=== PATIENT | male | born 2000 | race Caucasian/White ===

== ENCOUNTER 2020-12-01 19:55 | Emergency (ER) | payer SELFPAY ==
--- NOTE | 2020-12-01 19:58 | ECG_ITS ---
[facility] Test Date: 2020-12-01 Pat Name: SOM KING Department: Room: Gender: Male Director Of Automation: : 2000 Requested By: Panfilo Rodríguez Order Number: [id number] [place] MD: Yaritza Burnham M.D. Measurements Intervals [place] Rate: 101 P: 48 [place]: 161 QRS: 64 QRSD: 85 T: 47 QT: 307 QTc: 399 Interpretive Statements SINUS TACHYCARDIA ABNORMAL RHYTHM ECG No previous ECG available for comparison Electronically Signed On 12-03-2020 19:13:33 GRAIN MANAGER by Yaritza Burnham M.D. [id number]
--- NOTE | 2020-12-01 19:58 | XR_ITS ---
WS: [id number] Portable AP upright chest, 12/01/2020 Clinical Data: cp Comparison: None. Findings: No nodules, masses or effusions are seen. The heart is normal. The pulmonary vascularity is not increased. No pneumonia or pneumothorax is seen. XR/XR chest 1V portable 91102 Impression: Negative chest.
[2020-12-01 20:11] VITALS: BP 141/84; PULSE 91; RESP 18; TEMP 37.3; O2SAT 99; BMI 25.0
[2020-12-01 20:49] VITALS: BP 148/89; PULSE 86; RESP 18; O2SAT 99
--- NOTE | 2020-12-01 20:50 | PC.NURSE ---
pt c/o left arm numbness, thought when assessed pt has equal sensation upon both arms and can feel me when pinching both arms. vs retaken, pt is in nad at this time.
--- NOTE | 2020-12-01 21:30 | ECG_ITS ---
[facility] Test Date: 2020-12-01 Pat Name: SOM KING Department: Room: Gender: Male Release And Technical Records Clerk: : 2000 Requested By: Ramos Mackenzie Order Number: [id number] [place] MD: Yaritza Burnham M.D. Measurements Intervals [place] Rate: 92 P: 56 RI: 139 QRS: 86 QRSD: 90 T: 40 QT: 321 QTc: 398 Interpretive Statements SINUS RHYTHM WARNING: DATA QUALITY MAY AFFECT INTERPRETATION No previous ECG available for comparison Electronically Signed On 12-03-2020 19:13:30 SOFTBALL PLAYER by Yaritza Burnham M.D. [id number]
[2020-12-01 21:33] VITALS: BP 163/99; PULSE 99; RESP 16; O2SAT 100
[2020-12-01] MEDS: ketorolac 30 mg/mL INJ IM (22:11)
[2020-12-01] MEDS: lidocaine 2% viscous 15 ML, aluminum-mag hydrox-simethicon 30 ML, sucralfate oral liq 1 GM PO (22:11)
[2020-12-01 22:18] LABS: Basophils % 0.2 %; Hematocrit 40.5 % (42.0-52.0); Hemoglobin 14.2 g/dL (11.7-16.6); Lymphocytes # 1.4 10^3/uL (0.8-4.8); Lymphocytes % 11.1 %; Mean Corpuscular HGB Conc 35.1 g/dL (30.0-36.0); Mean Corpuscular Hemoglobin 29.3 pg (28.0-34.0); Mean Corpuscular Volume 83.7 fL (80-94); Monocytes # 1.4 10^3/uL (0.2-0.9); Monocytes % 11.7 %; Neutrophils # 9.43 10^3/uL (1.8-7.7); Neutrophils % 76.8 %; Nucleated Red Blood Cells % 0 %; Platelet Count 227 10^3/cmm (130-400); Red Blood Count 4.84 10^6/uL (4.1-5.3); Red Cell Distribution Width 11.9 % (12.1-15.1); White Blood Count 12.3 10^3/uL (4.0-10.0)
--- NOTE | 2020-12-01 22:45 | PC.NURSE ---
EKG done at 2245 and shown to ER doctor
[2020-12-01 22:47] LABS: Alanine Aminotransferase 13 U/L (0-41); Albumin Level 4.6 g/dL (3.5-5.2); Alkaline Phosphatase 59 IU/L (40-130); Anion Gap 16.9 (5-19); Aspartate Amino Transferase 16 U/L (0-40); Blood Urea Nitrogen 8 mg/dL (6-20); Calcium 9.2 mg/dL (8.5-10.5); Carbon Dioxide 25 mmol/L (22-29); Chloride 99 mmol/L (98-107); Creatinine Clr Calc Pharmacy 136.2107; Globulin 2.6 g/dL (1.3-4.6); Glomerular Filtration Rate 94.3 mL/min (90-130); Glucose 90 mg/dL (65-115); Osmolality Calculated 282 mOsm/kg (285-295); Potassium 3.9 mmol/L (3.5-5.1); Sodium 137 mmol/L (136-145); Total Bilirubin 0.6 mg/dL (0.15-1.2); Total Protein 7.2 g/dL (6.6-8.7)
[2020-12-01 22:48] LABS: Troponin(5th) Baseline 7 ng/L (0-15)
[2020-12-01 22:52] VITALS: PULSE 106; RESP 16; O2SAT 100
[2020-12-01 22:58] VITALS: PULSE 106; RESP 16; O2SAT 100
--- NOTE | 2020-12-01 23:12 | ED_ITS ---
HPI - Chest Pain General: Chief Complaint: Chest Pain Stated Complaint: DIFF BREATHING W/CP Time Seen by Provider: 12/01/20 21:20 History of Present Illness: HPI narrative: The patient is a 20-year-old male who comes to the ER complaining of midsternal chest pain and pain with deep breaths and movement and palpation of his chest wall. He says he also lifts heavy boxes at work frequently. No previous medical history or medication history. The pain started last night and he called off to work today because it hurt. He took no medications for this MD complaint: chest pain Pain location: substernal Pain radiation: none Quality: sharp Associated symptoms: Reports no associated symptoms; Deny abdominal pain, dyspnea or palpitations Review of Systems General: Reports: 10 or more systems reviewed and unremarkable except in HPI and below Const: Denies: fatigue Eyes: Denies: change in vision, blurry vision or eye redness ENMT: Denies: throat pain, swelling of lips/tongue, ear or mastoid pain or n julian congestion Card: Reports: chest pain; Denies: palpitations, irregular heart rhythm, edema, dyspnea on exertion or o rthopnea Resp: Denies: dyspnea, productive cough or non-productive cough GI: Denies: abdominal pain, diarrhea or GI cramping : Denies: flank pain, urinary frequency or urinary urgency Musc: Denies: neck pain, back pain, extremity pain, joint pain, joint redness, limited range of motion or muscle weakness Skin/Breast: Denies: rash, pruritus, erythema, skin pain or skin tenderness Neuro: Denies: headache(s), numbness in extremities, weakness in extremities, sensory changes, difficulty walking, dizziness, confusion or Slurred speech present Psych: Denies: anxiety or depression Endo: Denies: polyuria All/Imm: Denies: urticaria, throat swelling or tongue swelling Physical Exam Const: COMMON NORMALS: no acute distress, average body habitus, patient oriented x3, no limitations, healthy appearing, alert and well nourished GENERAL APPEARANCE: cooperative, comfortable, well kempt and well developed ORIENTATION/CONSCIOUSNESS: Yes awake, Yes oriented to person, Yes oriented to place and Yes oriented to time HENMT: COMMON NORMALS: normocephalic, external ears normal and Normal external nose present HEAD & SCALP: normal to inspection and normocephalic NOSE: Normal external nose present EXTERNAL EAR: Yes external ears normal MOUTH: Normal oral and palatal mucosa present THROAT: posterior oropharynx normal Eye: COMMON NORMALS: Equal, round and reactive pupils present and EOMs intact bilaterally GENERAL EYE: appearance normal, both eyes and all related structures PUPIL: Yes Equal, round and reactive pupils present Neck/C-Spine: COMMON NORMALS: full ROM, no lymphadenopathy, no meningeal signs and no JVD GENERAL: Yes normal visual inspection Lymph: LYMPHATIC: no lymphadenopathy noted Chest: COMMONS NORMALS: normal inspection of the chest OTHER: Sternum tender to palpation reproducing chief complaint of chest pain. Also he has pain identical with deep breaths and movement in that area. Chest wall pain Resp: COMMON NORMALS: normal respiratory effort, No retractions, No use of accessory muscles, clear to auscultation bilaterally and percussion normal EFFORT & INSPECTION: Yes able to speak in complete sentences AUSCULTATION: clear to auscultation bilaterally PERCUSSION: percussion normal Cardio: COMMON NORMALS: no JVD, regular rate, regular rhythm, S1 normal heart sound present, S2 normal heart sound present and Peripheral pulses 2+ throughout RATE: regular rate RHYTHM: regular rhythm HEART SOUNDS: S1 normal heart sound present and S2 normal heart sound present PERIPHERAL PULSES: Peripheral pulses 2+ throughout GI: COMMON NORMALS: Normal to inspection, nondistended, normoactive bowel sounds present, Soft to palpation, non-tender and no masses INSPECTION: Yes normal to inspection PALPATION: Yes Soft to palpation : COMMON NORMALS: Yes no CVA tenderness BLADDER/KIDNEY EXAM: Yes no CVA tenderness Back/Pelvis: COMMON NORMALS: no CVA tenderness, thoracic and lumbar spine normal to inspection, no thoracic nor lumbar tenderness and thoraco-lumbar ROM normal Extremity: COMMON NORMALS: normal to inspection, full ROM, capillary refill normal, no joint enlargement and no pedal edema GENERAL: Yes normal exam except as noted Neuro: COMMON NORMALS: patient oriented x3, CN's II-XII intact bilaterally, m oves all extremities, no focal motor deficits, no sensory deficits noted and gait normal SENSORIUM/ORIENTATION: Yes alert, Yes oriented to person, Yes oriented to place and Yes oriented to time MENINGEAL SIGNS: Yes no meningeal signs Psych: COMMON NORMALS: mental status grossly normal, Normal thought process present, cooperative, normal affect and speech normal APPEARANCE: Yes well kempt ATTITUDE: Yes calm SPEECH: Yes normal speech THOUGHT PROCESS: Normal thought process present Skin: COMMON NORMALS: no rashes or lesions noted GENERAL SKIN EXAM: no rashes or lesions noted Course Vital Signs: Vital signs: Vital Signs Temperature 99.1 F 12/01/20 20:11 Pulse Rate 106 H 12/01/20 22:58 Respiratory Rate 16 12/01/20 22:58 Blood Pressure 163/99 12/01/20 21:33 Pulse Oximetry 100 12/01/20 22:58 MDM - Chest Pain MDM Narrative: Medical decision making narrative: The patient has clear chest wall pain. Toradol relieved his pain to 0. Recommended taking ibuprofen and following up with a primary care physician in a week to monitor improvement of s ymptoms. ER with return of symptoms. I have placed a case management referral to help him set up with care Lab Data: Labs: Lab Results 12/01/20 12/01/20 12/01/20 Range/Units 22:09 22:09 22:09 WBC 12.3 H (4.0-10.0) 10^3/ uL RBC 4.84 (4.1-5.3) 10^6/u L Hgb 14.2 (11.7-16.6) g/dL Hct 40.5 L (42.0-52.0) % MCV 83.7 (80-94) fL MCH 29.3 (28.0-34.0) pg MCHC 35.1 (30.0-36.0) g/dL RDW 11.9 L (12.1-15.1) % Plt Count 227 (130-400) 10^3/c mm MPV 10.0 (7.4-10.4) fL Neut % (Auto) 76.8 % Lymph % (Auto) 11.1 % Churchill % (Auto) 11.7 % Eos % (Auto) 0.0 % Baso % (Auto) 0.2 % Neut # (Auto) 9.43 H (1.8-7.7) 10^3/u L Lymph # (Auto) 1.4 (0.8-4.8) 10^3/u L Churchill # (Auto) 1.4 H (0.2-0.9) 10^3/u L Eos # (Auto) 0.0 (0.0-0.8) 10^3/u L Baso # (Auto) 0.0 (0.0-0.1) 10^3/u L Nucleated RBC % (a uto) 0 % Nucleated RBCs # 0.0 /100WBC Sodium 137 (136-145) mmol/L Potassium 3.9 (3.5-5.1) mmol/L Chloride 99 (98-107) mmol/L Carbon Dioxide 25 (22-29) mmol/L Anion Gap 16.9 (5-19) BUN 8 (6-20) mg/dL Creatinine 1.0 (0.7-1.2) mg/dL GFR Calculation 94.3 (90-130) mL/min Glucose 90 (65-115) mg/dL Calculated Osmolal ity 282 L (285-295) mOsm/k g Calcium 9.2 (8.5-10.5) mg/dL Total Bilirubin 0.6 (0.15-1.2) mg/dL AST 16 (0-40) U/L ALT 13 (0-41) U/L Alkaline Phosphata se 59 (40-130) IU/L Troponin T Baselin e 7 (0-15) ng/L Total Protein 7.2 (6.6-8.7) g/dL Albumin 4.6 (3.5-5.2) g/dL Globulin 2.6 (1.3-4.6) g/dL Discharge Plan Discharge Patient Disposition: Home Clinical Impression: Atypical chest pain Condition: Stable Discharge Orders: Discharge ED (Routine); Ordered 12/01/20 Ordered By: Ramos Mackenzie Discharge Diet: Advance as tolerated Discharge Activity: Resume usual activity Patient Instructions: Chest Pain - Chest Wall, Opioid Safety Activity Restrictions/Additional Instructions: You most likely have chest pain from your chest wall. Please set up with a primary care physician in about a week for a follow-up to monitor improvement of this condition and return to the ER with worsening symptoms. Take ibuprofen for pain Stand Alone Forms: Work/School Release Coding Level of Care Code ED Aviation Program Manager for Cydney Ruiz
--- NOTE | 2020-12-02 09:48 | DCPLANNER ---
adult care manager had message to speak with patient about getting established with a primary care physician. adult care manager spoke with patient, asked if he would like help in getting established with a primary care physician. Patient stated that he would take care of getting a primary care physician. Patient does not want onsite case manager to help with getting established with a primary care at this time.
== END 2020-12-01 22:59 | disposition home or self-care (01) ==
PROVIDERS: Emergency Provider Family Medicine
DX: R07.89 Other chest pain (principal)
CPT/HCPCS: 71045; 80053; 84484; 85025; 93005; 96372; 99283; J1885